=== PATIENT | female | born 1960 | race Two or more races ===

== ENCOUNTER 2024-06-20 11:42 | Inpatient (IN) | payer MEDICAID, OTHER ==
[~2024-06-20] VITALS: Ht 161.3 cm; Wt 106.6 kg
--- NOTE | 2024-06-20 11:46 | ED.PDOC ---
Carit. trauma (HPI) HPI Comments 63 y.o female presents to the ED via EMS for a cheif complaint of right sided pain s/p fall coming out the grocery store today. Patient reports feeling dizzy prior to falling but denied any LOC or head injuries. Patient presents with right sided lower back, abdomen, hip, leg and knee pain associated with rigth foot numbness. Patient denies any chest pain, SOB, fever, chills, lightheadedness, or recent illness. Time Seen by MD: 11:38 Reviewed notes: Nurses Notes, Auto Rental Supervisor Notes, Medications, Allergies Allergies: Coded Allergies: Acetaminophen (Verified Allergy, Severe, 06/20/24) Hydrocodone (Verified Allergy, Severe, 06/20/24) Information Source: Patient, Emergency Med Personnel Mode of Arrival: EMS Severity: Moderate Timing: Hours Duration: Since onset Prehospital treatment: 12 Lead EKG Location: Abdominal, Back, (R) Hip, (R) Knee Location of laceration: None Mechanism: Fall Associated signs and symtoms: Other Past Medical History PAST MEDICAL HISTORY: Gallstones Past Medical History (Other): kindey infections Surgical History: Appendectomy Surgical History (Other): gallstones LEAD INGOT MOLDER History: No Pertinent LEAD INGOT MOLDER History Family History Family History: Family hx of DM, Family hx of Cancer, Family hx of Kidney elena Social History Smoker: Non-Smoker Alcohol: Denies ETOH Use Drugs: Denies Drug Use Lives In: Home Constitutional: denies: chills, diaphoresis, fatigue, fever, malaise, sweats, weakness, others EENTM: denies: blurred vision, double vision, ear bleeding, ear discharge, ear drainage, ear pain, ear ringing, eye pain, eye redness, hearing loss, mouth pain, mouth swelling, nasal discharge, nose bleeding, nose congestion, nose pain, photophobia, tearing, throat pain, throat swelling, voice changes, others Respiratory: denies: cough, hemoptysis, orthopnea, SOB at rest, shortness of breath, SOB with excertion, stridor, wheezing, others Cardiovascular: denies: chest pain, dizzy spells, diaphoresis, Dyspnea on exertion, edema, irregular heart beat, left arm pain, lightheadedness, palpitations, PND, syncope, others Gastrointestinal: denies: abdomen distended, abdominal pain, blood streaked bowels, constipated, diarrhea, dysphagia, difficulty swallowing, hematemesis, melena, nausea, poor appetite, poor fluid intake, rectal bleeding, rectal pain, vomiting, others Genitourinary: denies: abnormal vagina bleeding, burning, dyspareunia, dysuria, flank pain, frequency, hematuria, incontinence, pain, , vagina dis charge, urgency, others Neurological: denies: dizziness, fainting, headache, left sided numbness, left sided weakness, numbness, paresthesia, pre-existing deficit, right sided numbness, right sided weakness, seizure, speech problems, tingling, tremors, weakness, others Musculoskeletal: reports: back pain, others (right sided body pain including back, abdomen, leg, knee and foot pain); denies: gout, joint pain, joint swelli ng, muscle pain, muscle stiffness, neck pain Integumetry: denies: bruises, change in color, change in hair/nails, dryness, laceration, lesions, lumps, rash, wounds, others Allergic/Immunocompromised: denies: Difficulty Healing, Frequent Infections, Hives, Itching, others Hematologic/Lymphatic: denies: anemia, blood clots, easy bleeding, easy bruising, swollen glands, others Endocrine: denies: excessive hunger, excessive sweating, excessive thirst, excessive urination, flushing, intolerance to cold, intolerance to heat, unexplained weight gain, unexplained weight loss, others Psychiatric: denies: anxiety, bipolar disorder, depression, hopeless, panic disorder, schizophrenia, sleepless, suicidal, others All Other Systems: Reviewed and Negative Physical Exam General Appearance: Moderate Distress HEENT: Normal ENT Inspection, Pharynx Normal, TMs Normal Neck: Full Range of Motion, Non-Tender, Normal, Normal Inspection Respiratory: Chest Non-Tender, Lungs Clear, No Accessory Muscle Use, No Respiratory Distress, Normal Breath Sounds Cardiovascular: No Edema, No JVD, No Murmur, No Gallop, Normal Peripheral Pulses, Regular Rate/Rhythm Breast Exam: Deferred Gastrointestinal: No Organomegaly, Non Tender, No Pulsatile Mass, Normal Bowel Sounds, Soft Genitalia: Deferred Pelvic: Deferred Rectal: Deferred Extremities: No calf tenderness, Normal capillary refill, No pedal edema Musculoskeletal : Location: Right Extremity Location: Hip Apperance: Normal Neurologic: Alert, clean up worker II-XII nml as Tested, Motor Weakness, Normal Affect, Normal Mood, No Sensory Deficits Cerebellar Function: Normal Reflexes: Normal Skin: Dry, Normal Color, Warm Lymphatic: No Adenopathy Was a procedure done? Was a procedure done?: No Differential Diagnosis Multiple Trauma: Fractures, Contusion, Other (sprain, strain, dislocation) X-Ray, Labs, Meds, VS Vital Signs Date Time Temp Pulse Resp B/P (MAP) Pulse Ox O2 Delivery O2 Flow Rate FiO2 06/20/24 12:06 98.1 86 12 142/75 (97) 93 98.1 06/20/24 12:06 86 12 93 Room Air* 0 21 06/20/24 11:44 98.4 95 15 125/86 (99) 98 98.4 Lab Test 06/20/24 13:40 06/20/24 12:15 06/20/24 11:55 Range/Units POC Glucose 421 *H 70-106 mg/dl Urine Color Light-yellow Yellow Urine Clarity Clear Clear Urine pH 5.0 5.0-9.0 Urine Specific [place] 1.042 H 1.001-1.035 Urine Protein Negative Negative Urine Ketones Negative Negative Urine Blood Negative Negative /uL Urine Nitrite Negative Negative Urine Bilirubin Negative Negative Urine Urobilinogen Normal Negative mg/dL Urine Leukocyte Esterase Negative Negative /uL Urine RBC <1 0 - 4 /hpf Urine Microscopic WBC < 1 0-5 /HPF Urine Squamous Epithelial Cells Few <5 /hpf Urine Bacteria Few H None Seen /hpf Urine Yeast (Budding) Occasional None Seen /hpf Urine Glucose 4+ H Normal mg/dL White Blood Count 7.2 4.4-10.8 10^3/uL Red Blood Count 4.80 4.0-5.20 10^6/uL Hemoglobin 14.2 12.2-16.2 g/dL Hematocrit 41.0 36.0-46.0 % Mean Corpuscular Volume 85.5 80.0-100.0 fL Mean Corpuscular Hemoglobin 29.5 28.0-32.0 pg Mean Corpuscular Hemoglobin Concent 34.5 32.0-36.0 g/dL Red Cell Distribution Width 14.6 H 11.8-14.3 % Platelet Count 125 L 140-450 10^3/uL Mean Platelet Volume 9.4 6.9-10.8 fL Neutrophils (%) (Auto) 64.3 37.0-80.0 % Lymphocytes (%) (Auto) 28.7 10.0-50.0 % Monocytes (%) (Auto) 4.9 0.0-12.0 % Eosinophils (%) (Auto) 1.9 0.0-7.0 % Basophils (%) (Auto) 0.2 0.0-2.0 % Neutrophils # (Auto) 4.7 1.6-8.6 10 ^3/uL Lymphocytes # (Auto) 2.1 0.4-5.4 10 ^3/uL Monocytes # (Auto) 0.4 0-1.3 10 ^3/uL Eosinophils # (Auto) 0.1 0-0.8 10 ^3/uL Basophils # (Auto) 0 0-0.2 10 ^3/uL Nucleated Red Blood Cells 0.1 % Sodium Level 135 L 136-145 mmol/L Potassium Level 3.5 3.5-5.1 mmol/L Chloride Level 100 98-107 mmol/L Carbon Dioxide Level 23 20-31 mmol/L Anion Gap 12 5-15 Blood Urea Nitrogen 15 9-23 mg/dL Creatinine 0.94 0.550-1.02 mg/dL Glomerular Filtration Rate Calc 69 >90 mL/min BUN/Creatinine Ratio 16.0 10.0-20.0 Serum Glucose 570 *H 74-106 mg/dL Calcium Level 9.5 8.7-10.4 mg/dL Current Medications Medications (Trade) Dose Ordered Sig/Darius Route Start Time Stop Time Status Last Admin Sodium Chloride 1,000 ml @ 1,000 mls/hr Q1H ONCE IV 06/20/24 13:30 06/20/24 14:29 06/20/24 13:38 Insulin Human Regular (InsuLIN R) 5 units ONCE ONCE IV 06/20/24 13:30 06/20/24 13:31 DC 06/20/24 13:46 Patient's CBC is within normal limits The chemistry panel shows a glucose of 570 There is a concern about the hyperglycemia so the patient was given normal saline at 1 L bolus. The patient was given insulin 5 units IV push. The urine test is negative at this time The patient was being admitted to the hospitalist with a diagnosis of uncontrolled diabetes as well as fall. We did an x-ray of the right hip which shows: No sign of any abnormalities The right knee x-ray is negative The chest x-ray is negative The patient was being admitted at this time Images Reviewed?: Images reviewed and evaluated by me Time of 1ST Reevaluation: 11:46 Reevaluation 1ST: Unchanged Patient Education/Counseling: Diagnosis, Treatment, Prognosis Family Education/Counseling: No Family Present Departure 1 Departure Time of Disposition: 14:03 Impression: Primary Impression: Uncontrolled diabetes mellitus Qualified Codes: E13.65 - Other specified diabetes mellitus with hyperglycemia Additional Impressions: History of fall Contusion of right hip Qualified Codes: S70.01XA - Contusion of right hip, initial encounter Disposition: 09 ADMITTED INPATIENT Admit to: [facility] Condition: Fair Critical Care Note Critical Care Time?: No Stability Stability form required: Yes Unstable for transfer: Telemetry monitoring (Telemetry monitoring required), ED Physician Assesment (Clinical assesment) I personally scribed for SHERLY LARSEN MD ([email or web address]) on 06/20/24 at 11:46. Electronically submitted by Miguelina Gray ([facility]). SHERLY LARSEN MD Jun 20, 2024 11:46
[2024-06-20 12:06] VITALS: PULSE 86; RESP 12; O2SAT 93
[2024-06-20 12:09] LABS: Basophils # (auto) 0 10 ^3/uL (0-0.2); Basophils % (auto) 0.2 % (0.0-2.0); Eosinophils # (auto) 0.1 10 ^3/uL (0-0.8); Eosinophils % (auto) 1.9 % (0.0-7.0); Hemoglobin 14.2 g/dL (12.2-16.2); Lymphocytes # (auto) 2.1 10 ^3/uL (0.4-5.4); Lymphocytes % (auto) 28.7 % (10.0-50.0); Mean Corpuscular Hemoglobin 29.5 pg (28.0-32.0); Mean Corpuscular Hgb Conc. 34.5 g/dL (32.0-36.0); Mean Corpuscular Volume 85.5 fL (80.0-100.0); Monocytes # (auto) 0.4 10 ^3/uL (0-1.3); Monocytes % (auto) 4.9 % (0.0-12.0); Neutrophils # (auto) 4.7 10 ^3/uL (1.6-8.6); Neutrophils % (auto) 64.3 % (37.0-80.0); Nucleated Red Blood Cells % 0.1 %; Platelet Count (auto) 125 10^3/uL (140-450); Red Cell Distribution Width 14.6 % (11.8-14.3); White Blood Cell 7.2 10^3/uL (4.4-10.8)
[2024-06-20 12:23] LABS: Chloride 100 mmol/L (98-107); Potassium 3.5 mmol/L (3.5-5.1)
[2024-06-20 12:24] LABS: Anion Gap 12 (5-15); Calcium 9.5 mg/dL (8.7-10.4); Carbon Dioxide 23 mmol/L (20-31)
[2024-06-20 12:27] LABS: Sodium 135 mmol/L (136-145)
[2024-06-20 12:29] LABS: Blood Urea Nitrogen 15 mg/dL (9-23)
[2024-06-20 12:36] LABS: Glucose 570 mg/dL (74-106)
[2024-06-20 12:47] LABS: Urine Bacteria FEW /hpf (None Seen); Urine Blood Negative /uL (Negative); Urine Budding Yeast OCCASIONAL /hpf (None Seen); Urine Clarity Clear (Clear); Urine Color Light-Yellow (Yellow); Urine Protein, UAD Negative (Negative); Urine Specific Gravity 1.042 (1.001-1.035); Urine Squamous Epithelial Cell FEW /hpf (<5); Urine Urobilinogen Normal (Negative); Urine WBC < 1 /HPF (0-5)
--- NOTE | 2024-06-20 13:26 | DVH ---
CLINICAL INDICATION: fall, trauma, pain TECHNIQUE: XY R HIP COMPLETE XRAY Comparison: None FINDINGS/IMPRESSION: : There is no evidence of acute fracture or dislocation. Soft tissues are unremarkable.
--- NOTE | 2024-06-20 13:27 | DVH ---
CHEST RADIOGRAPH Indication: fall, trauma, pain Technique: Single frontal view of the chest was obtained COMPARISON: None FINDINGS: Lines and Tubes: None Lungs: Clear Pleura: No effusion. No pneumothorax. Cardiomediastinal contours: Unremarkable Bones: Unremarkable IMPRESSION: No acute disease.
--- NOTE | 2024-06-20 13:30 | DVH ---
X-ray right knee Technique: AP lateral and oblique views and cross-table views REASON FOR EXAM: fall FINDINGS: No fractures or dislocations. No erosions or periosteal reaction. Patellofemoral joint spac e narrowing. No joint effusion IMPRESSION: 1. No acute bony pathology. Mild degenerative changes
[2024-06-20] MEDS: SODIUM CHLORIDE 0.9% 1,000 ML IV ONE (13:38)
[2024-06-20] MEDS: InsuLIN REG 1unit/0.01ml Soln (100units/ml) IV ONE (13:46)
[2024-06-20] MEDS: MORPHINE SULFATE 4 MG/ML SYR/VIAL IV ONE (16:26)
[2024-06-20] MEDS ORDERED: DEXTROSE (50%) 50ML SYRG IV PRN (16:45)
[2024-06-20] MEDS ORDERED: ONDANSETRON HCL 4 MG/2 ML VIAL IV PRN (16:45)
[2024-06-20] MEDS ORDERED: ACETAMINOPHEN 325 MG TAB PO PRN (16:45)
[2024-06-20] MEDS ORDERED: NITROGLYCERIN 0.4 MG SL TAB SL PRN (16:45)
[2024-06-20] MEDS ORDERED: IBUPROFEN 600 MG TAB PO PRN (16:45)
[2024-06-20] MEDS: SODIUM CHLORIDE 0.9% 1,000 ML IV SCH (16:54)
[2024-06-20 16:58] LABS: Triglycerides 113 mg/dL (< 150)
[2024-06-20 16:59] LABS: LDL Cholesterol 60 mg/dL (< 100)
[2024-06-20 17:00] LABS: Cholesterol 140 mg/dL (< 200)
[2024-06-20 17:03] LABS: HDL Cholesterol 66 mg/dL (40-59)
--- NOTE | 2024-06-20 17:07 | DVH ---
EXAM: CT HEAD WITHOUT CONTRAST INDICATION: fall TECHNIQUE: CT of the head without intravenous contrast. Radiation Dose : 1. Head: CT Dose: CTDI volume is 58.77 mGy. Dose-length product is 1040.57 mGy*cm The dose indicators for CT are the volume Computed Tomography (CT) Dose Index (CTDIvol) and the Dose Length Product (DLP), and are measured in units of mGy and mGy-cm, respectively. These indicators are not patient dose, but values generated from the CT scanner acquisition factors. The report includes radiation exposure data for exposures received during this examination. COMPARISON: None FINDINGS: There is no evidence of acute intracranial hemorrhage, extra-axial collection, mass effect, midline s hift, herniation or hydrocephalus. The ventricles, sulci and cisterns are age appropriate. The carlson-white differentiation is intact. Patchy periventricular and subcortical white matter hypoattenuation is nonspecific but may be related to small vessel ischemic disease. The visualized paranasal sinuses and mastoid air cells are clear. The surrounding soft tissues and osseous structures are unremarkable. IMPRESSION: 1. No acute intracranial abnormality. Radiation optimization: All CT scans at this facility use at least one of these dose optimization latosha hniques: automated exposure control mA and/or kV adjustment per patient size (includes targeted exam s where dose is matched to clinical indication) or iterative reconstruction.
[2024-06-20] MEDS: ACCU-CHEK COMFORT CURVE STRIP VI SCH (17:23)
[2024-06-20] MEDS: InsuLIN REG 1unit/0.01ml Soln (100units/ml) SC SCH (17:27)
[2024-06-20 19:39] VITALS: PULSE 69; RESP 97; O2SAT 97
[2024-06-20] MEDS: MORPHINE SULFATE INJ 2 MG/ml SYRG IV PRN (22:45)
[2024-06-20 23:00] VITALS: BP 134/80; PULSE 99; RESP 17; TEMP 97.8; O2SAT 96
[2024-06-20 23:08] VITALS: BP 134/80; PULSE 72; RESP 18; TEMP 97.8; O2SAT 96
[2024-06-20] MEDS ORDERED: CLON-857 PO (23:19)
[2024-06-20] MEDS ORDERED: HYDR12.59 PO (23:19)
[2024-06-20] MEDS ORDERED: OMEP1CAP70 PO (23:19)
[2024-06-20] MEDS ORDERED: NAP500T PO (23:19)
[2024-06-20] MEDS ORDERED: SERT-289 PO (23:19)
[2024-06-21] VITALS (8 sets, daily range): BP systolic 111–182; BP diastolic 69–86; PULSE 68–83; RESP 15–20; TEMP 97.5–98.3; O2SAT 92–98
[2024-06-21] MEDS ORDERED: DEXTROSE (50%) 50ML SYRG IV PRN (00:45)
--- NOTE | 2024-06-21 01:59 | DVHHP2 ---
DEIRDRE GODWIN MANDREL PRESS HAND 06/21/24 0159: History of Present Illness Reason for Visit: Dizziness and fall History of Present Illness 63-year-old female with past medical history of DM, hypertension presents with complaints of a fall after getting dizzy. Patient states she was walking in the parking lot of a grocery store when she suddenly felt dizzy and fell to the ground. Endorses pain to the right hip lower back and numbness to the foot. At this time there are no complaints of fevers, chills, LOC, head trauma, shortness of breath, chest pain, nausea, vomiting. Cardiovascular: HTN Endocrine: Diabetes Smoke: No ALCOHOL: none Drugs: None Lives: with Family Review of Systems Constitutional: Yes: Weakness; No: Fever, Chills, Sweats, Malaise, Other Eyes: No: Pain, Vision change, Conjunctivae inflammation, Eyelid inflammation, Other, Redness ENT: No: Ear pain, Ear discharge, Nose pain, Nose discharge, Nose congestion, Mouth pain, Mouth swelling, Throat pain, Throat swelling, Other Respiratory: No: Cough, Dry, Shortness of breath, SOB with excertion, Wheezing, Hemoptysis, Pleuritic Pain, Sputum, Wheezing, Other Cardiovascular: Lt Headedness; No: Chest Pain, Palpitations, Orthopnea, Paroxy smal Noc. Dyspnea, Edema, Other Gastrointestinal: No: Nausea, Vomiting, Abdominal Pain, Diarrhea, Constipation, Melena, Hematochezia, Other Genitourinary: No Dysuria, No Frequency, No Incontinence, No Hematuria, No Retention, No Other Musculoskeletal: back pain, leg pain, foot pain; No: other, neck pain, shoulder pain, arm pain, hand pain Skin: No: Rash, Lesions, Jaundice, Bruising, Other Neurological: No: Weakness, Numbness, Incoordination, Change in speech, Confusion, Seizures, Other Allergies: Coded Allergies: NO KNOWN ALLERGIES (Unverified , 06/20/24) Medications Current Medications Medications Dose Ordered Sig/Darius Route Start Time Stop Time Status Last Admin Dose Admin Nitroglycerin 0.4 mg Q5MINP PRN SL 06/20/24 16:45 Morphine Sulfate 2 mg Q30M PRN IV 06/20/24 16:45 06/20/24 22:45 2 MG Sodium Chloride 1,000 ml @ 125 mls/hr Q8H IV 06/20/24 16:45 06/20/24 23:56 125 MLS/HR Ondansetron HCl 4 mg Q4HPRN PRN IV 06/20/24 16:45 Ibuprofen 600 mg Q6HP PRN PO 06/20/24 16:45 Acetaminophen 650 mg Q4HP PRN PO 06/20/24 16:45 Hold Famotidine 20 mg DAILY PO 06/21/24 10:00 Insulin Glargine 15 units DAILY@1000 SC 06/21/24 10:00 Insulin Human Lispro 4 units AC SC 06/21/24 07:00 Diagnostic Test (Pha) 1 strip ACHS 06/21/24 07:00 Dextrose 50 ml UD PRN IV 06/21/24 00:45 Insulin Human Lispro ACHS SC 06/21/24 07:00 Exam Vital Signs Vital Signs Date Time Temp Pulse Resp B/P (MAP) Pulse Ox O2 Delivery O2 Flow Rate FiO2 06/21/24 01:00 97.8 75 17 153/80 (104) 96 97.8 06/20/24 23:08 Room Air* 0 21 General Appearance: Alert, Oriented X3, Cooperative, No acute distress HEENT: Atraumatic, PERRLA, EOMI Respiratory: Clear to auscultation, Normal air movement Cardiovascular: Regular rate, Normal S1, Normal S2 Abdominal: Normal bowel sounds, Soft, No tenderness Extremities: No clubbing, No cyanosis Skin: No breakdown Neuro: Normal speech, Strength at 5/5 X4 ext Psych/Mental Status: Mental status NL, Mood NL Labs/Xrays Labs Test 06/20/24 21:32 06/20/24 19:59 06/20/24 16:58 06/20/24 12:15 Range/Units POC Glucose 208 H 70-106 mg/dl Troponin I High Sensitivity 3 L </=34 ng/L Free Thyroxine (T4) Calculated 1.29 0.89-1.76 ng/dL Urine Color Light-yellow Yellow Urine Clarity Clear Clear Urine pH 5.0 5.0-9.0 Urine Specific [place] 1.042 H 1.001-1.035 Urine Protein Negative Negative Urine Ketones Negative Negative Urine Blood Negative Negative /uL Urine Nitrite Negative Negative Urine Bilirubin Negative Negative Urine Urobilinogen Normal Negative mg/dL Urine Leukocyte Esterase Negative Negative /uL Urine RBC <1 0 - 4 /hpf Urine Microscopic WBC < 1 0-5 /HPF Urine Squamous Epithelial Cells Few <5 /hpf Urine Bacteria Few H None Seen /hpf Urine Yeast (Budding) Occasional None Seen /hpf Urine Glucose 4+ H Normal mg/dL Test 06/20/24 11:55 Range/Units White Blood Count 7.2 4.4-10.8 10^3/uL Red Blood Count 4.80 4.0-5.20 10^6/uL Hemoglobin 14.2 12.2-16.2 g/dL Hematocrit 41.0 36.0-46.0 % Mean Corpuscular Volume 85.5 80.0-100.0 fL Mean Corpuscular Hemoglobin 29.5 28.0-32.0 pg Mean Corpuscular Hemoglobin Concent 34.5 32.0-36.0 g/dL Red Cell Distribution Width 14.6 H 11.8-14.3 % Platelet Count 125 L 140-450 10^3/uL Mean Platelet Volume 9.4 6.9-10.8 fL Neutrophils (%) (Auto) 64.3 37.0-80.0 % Lymphocytes (%) (Auto) 28.7 10.0-50.0 % Monocytes (%) (Auto) 4.9 0.0-12.0 % Eosinophils (%) (Auto) 1.9 0.0-7.0 % Basophils (%) (Auto) 0.2 0.0-2.0 % Neutrophils # (Auto) 4.7 1.6-8.6 10 ^3/uL Lymphocytes # (Auto) 2.1 0.4-5.4 10 ^3/uL Monocytes # (Auto) 0.4 0-1.3 10 ^3/uL Eosinophils # (Auto) 0.1 0-0.8 10 ^3/uL Basophils # (Auto) 0 0-0.2 10 ^3/uL Nucleated Red Blood Cells 0.1 % Sodium Level 135 L 136-145 mmol/L Potassium Level 3.5 3.5-5.1 mmol/L Chloride Level 100 98-107 mmol/L Carbon Dioxide Level 23 20-31 mmol/L Anion Gap 12 5-15 Blood Urea Nitrogen 15 9-23 mg/dL Creatinine 0.94 0.550-1.02 mg/dL Glomerular Filtration Rate Calc 69 >90 mL/min BUN/Creatinine Ratio 16.0 10.0-20.0 Serum Glucose 570 *H 74-106 mg/dL Hemoglobin A1c 13.1 H <5.7 % A1C Calcium Level 9.5 8.7-10.4 mg/dL Triglycerides Level 113 < 150 mg/dL Cholesterol Level 140 < 200 mg/dL LDL Cholesterol 60 < 100 mg/dL HDL Cholesterol 66 H 40-59 mg/dL Thyroid Stimulating Hormone (TSH) 1.28 0.55-4.78 uIU/mL Assessment/Plan Assessment/Plan Uncontrolled DM with hyperglycemia Dizziness Fall Contusion right hip Plan Admit patient to telemetry Assembly Repairer consult. ACHS blood glucose checks with regular insulin sliding scale coverage Echocardiogram. Orthostatic vital signs Orthopedic consult IVF GI ppx pepcid / DVT ppx SCD Plan discussed with: Patient Date of Service: Jun 21, 2024 Billing Provider: JASVIR BLUE MD Common Visit Codes: NOT BILLABLE JASVIR BLUE MD 06/21/24 1331: Review of Systems Allergies: Coded Allergies: NO KNOWN ALLERGIES (Unverified , 06/20/24) Assessment/Plan Assessment/Plan Patient's chart is reviewed and discussed with the nurse practitioner. Patient is seen and evaluated by me this afternoon along with the nurse at bedside. I agree with the nurse practitioner's evaluation, documentation, assessment and care plan as outlined. DEIRDRE GODWIN NP Jun 21, 2024 01:59 JASVIR BLUE MD Jun 21, 2024 13:31
[2024-06-21] MEDS: ACCU-CHEK COMFORT CURVE STRIP VI SCH (06:09)
[2024-06-21] MEDS: INSULIN LISPRO (HUMAN) 100 UNITS/ML ML SC SCH ×2 (06:21→06:22)
[2024-06-21] MEDS ORDERED: INSULIN LISPRO (HUMAN) 100 UNITS/ML ML SC SCH ×2 (07:00→22:00)
[2024-06-21 08:01] LABS: Chloride 106 mmol/L (98-107); Potassium 3.8 mmol/L (3.5-5.1); Sodium 142 mmol/L (136-145)
[2024-06-21 08:02] LABS: Anion Gap 9 (5-15); Carbon Dioxide 27 mmol/L (20-31)
[2024-06-21 08:08] LABS: BUN/Creatinine Ratio 13.6 (10.0-20.0); Blood Urea Nitrogen 11 mg/dL (9-23)
[2024-06-21 08:10] LABS: Glucose 298 mg/dL (74-106)
[2024-06-21] MEDS: INSULIN LANTUS (GLARGINE) 1 /0.01ml (100units/ml) SC SCH (10:00)
[2024-06-21] MEDS: FAMOTIDINE 20 MG TAB PO SCH (10:00)
[2024-06-21] MEDS ORDERED: HYDROcodone-ACET 5/325MG TAB PO PRN (12:30)
[2024-06-21] MEDS: SODIUM CHLORIDE 0.9% 1,000 ML IV SCH (13:30)
[2024-06-21] MEDS: INSULIN LISPRO (HUMAN) 100 UNITS/ML ML SC ONE (15:30)
--- NOTE | 2024-06-21 16:53 | DVHINCON2 ---
Date of service: Jun 21, 2024 Reason for Consultation hyperglycemia History of Present Illness 63yo F w/ hx of HTN who presented to the hospital on 06/20 with R sided pain 2/2 GLF. Patient had been ambulating out of grocery store when she began experiencing acute onset dizziness resulting in GLF. Upon presentation patient was hemodynamically stable satting well on room air, afebrile. Endorsed pain in R lower back, abdomen, knee. Notes chronic bilateral LE numbness/tingling. Labwork upon presentation showed A1c 13.1%. Normal CBC. BG 570. Na 135. Patient was given regular insulin. She denies any past history of dysglycemia. Does not take any antihyperglycemic pharmacotherapy at home. Past Medical History Problems Medical Problems: (1) Contusion of right hip Status: Acute (2) History of fall Status: Acute (3) Uncontrolled diabetes mellitus Status: Acute Past Surgical History Past Surgical History Medical Problems: (1) Contusion of right hip Status: Acute (2) History of fall Status: Acute (3) Uncontrolled diabetes mellitus Status: Acute Family History: Diabetes mellitus G8 MOTHER FH: chronic kidney disease Sepsis Allergies: Coded Allergies: NO KNOWN ALLERGIES (Unverified , 06/20/24) Home Meds Reported Medications Naproxen (NAPROSYN TABLET) 500 Mg Tb, 1 TAB PO BID 06/20/24 Sertraline HCl (Sertraline HCl) 50 Mg Tab, 1 TAB PO DAILY 06/20/24 Omeprazole (Omeprazole Dr) 20 Mg Cap, 1 CAP PO DAILY 06/20/24 Clonazepam (Clonazepam) 2 Mg Tab, PO 06/20/24 Hydrochlorothiazide (Hydrochlorothiazide) 12.5 Mg Cap, PO 06/20/24 Current Medications Current Medications Medications (Trade) Dose Ordered Sig/Darius Route PRN Reason Start Time Stop Time Status Last Admin Famotidine (Pepcid Tablet) 20 mg DAILY PO 06/21/24 10:00 06/21/24 10:00 Diagnostic Test (Pha) (Accu-Chek Comfort Curve T) 1 strip ACHS 06/20/24 17:00 06/21/24 00:27 DC 06/20/24 21:34 Insulin Human Regular (InsuLIN R) ACHS SC 06/20/24 17:00 06/21/24 00:27 DC 06/20/24 21:40 Insulin Glargine (Lantus) 15 units DAILY@1000 SC 06/21/24 10:00 06/21/24 10:00 Insulin Human Lispro (HumaLOG) 4 units AC SC 06/21/24 07:00 06/21/24 11:37 Diagnostic Test (Pha) (Accu-Chek Comfort Curve T) 1 strip ACHS 06/21/24 07:00 06/21/24 11:35 Insulin Human Lispro (HumaLOG) HS SC 06/21/24 22:00 06/21/24 00:53 DC Insulin Human Lispro (HumaLOG) AC SC 06/21/24 07:00 06/21/24 00:55 DC Dextrose 50 ml UD PRN IV Blood Sugar LESS THAN 60 06/21/24 00:45 Insulin Human Lispro (HumaLOG) ACHS SC 06/21/24 07:00 06/21/24 11:38 Acetaminophen/ Hydrocodone Bitart ([place] 5/325MG Tab) 1 tab Q6HPRN PRN PO MODERATE PAIN (4-6 PAIN SCALE) 06/21/24 12:30 Sodium Chloride 1,000 ml @ 75 mls/hr [id number] IV 06/21/24 13:30 Vital Signs Vital Signs Date Time Temp Pulse Resp B/P (MAP) Pulse Ox O2 Delivery O2 Flow Rate FiO2 06/21/24 13:00 98.3 68 20 163/82 (109) 98 98.3 06/21/24 08:13 Room Air* 0 21 Physical Exam Gen - no acute distress HEENT - no thyromegaly CV - RRR, no m/r/g Resp - CTAB Ext - no edema Labs/Diagnostic Data Labs Test 06/21/24 15:08 06/21/24 07:25 06/20/24 19:59 06/20/24 16:58 Range/Units POC Glucose 293 H 70-106 mg/dl Sodium Level 142 # 136-145 mmol/L Potassium Level 3.8 3.5-5.1 mmol/L Chloride Level 106 98-107 mmol/L Carbon Dioxide Level 27 20-31 mmol/L Anion Gap 9 5-15 Blood Urea Nitrogen 11 9-23 mg/dL Creatinine 0.81 0.550-1.02 mg/dL Glomerular Filtration Rate Calc 82 >90 mL/min BUN/Creatinine Ratio 13.6 10.0-20.0 Serum Glucose 298 H 74-106 mg/dL Calcium Level 9.0 8.7-10.4 mg/dL Troponin I High Sensitivity 3 L </=34 ng/L Free Thyroxine (T4) Calculated 1.29 0.89-1.76 ng/dL Test 06/20/24 12:15 06/20/24 11:55 Range/Units Urine Color Light-yellow Yellow Urine Clarity Clear Clear Urine pH 5.0 5.0-9.0 Urine Specific [place] 1.042 H 1.001-1.035 Urine Protein Negative Negative Urine Ketones Negative Negative Urine Blood Negative Negative /uL Urine Nitrite Negative Negative Urine Bilirubin Negative Negative Urine Urobilinogen Normal Negative mg/dL Urine Leukocyte Esterase Negative Negative /uL Urine RBC <1 0 - 4 /hpf Urine Microscopic WBC < 1 0-5 /HPF Urine Squamous Epithelial Cells Few <5 /hpf Urine Bacteria Few H None Seen /hpf Urine Yeast (Budding) Occasional None Seen /hpf Urine Glucose 4+ H Normal mg/dL White Blood Count 7.2 4.4-10.8 10^3/uL Red Blood Count 4.80 4.0-5.20 10^6/uL Hemoglobin 14.2 12.2-16.2 g/dL Hematocrit 41.0 36.0-46.0 % Mean Corpuscular Volume 85.5 80.0-100.0 fL Mean Corpuscular Hemoglobin 29.5 28.0-32.0 pg Mean Corpuscular Hemoglobin Concent 34.5 32.0-36.0 g/dL Red Cell Distribution Width 14.6 H 11.8-14.3 % Platelet Count 125 L 140-450 10^3/uL Mean Platelet Volume 9.4 6.9-10.8 fL Neutrophils (%) (Auto) 64.3 37.0-80.0 % Lymphocytes (%) (Auto) 28.7 10.0-50.0 % Monocytes (%) (Auto) 4.9 0.0-12.0 % Eosinophils (%) (Auto) 1.9 0.0-7.0 % Basophils (%) (Auto) 0.2 0.0-2.0 % Neutrophils # (Auto) 4.7 1.6-8.6 10 ^3/uL Lymphocytes # (Auto) 2.1 0.4-5.4 10 ^3/uL Monocytes # (Auto) 0.4 0-1.3 10 ^3/uL Eosinophils # (Auto) 0.1 0-0.8 10 ^3/uL Basophils # (Auto) 0 0-0.2 10 ^3/uL Nucleated Red Blood Cells 0.1 % Hemoglobin A1c 13.1 H <5.7 % A1C Triglycerides Level 113 < 150 mg/dL Cholesterol Level 140 < 200 mg/dL LDL Cholesterol 60 < 100 mg/dL HDL Cholesterol 66 H 40-59 mg/dL Thyroid Stimulating Hormone (TSH) 1.28 0.55-4.78 uIU/mL Assessment # Uncontrolled type 2 DM with hyperglycemia # HTN # HLD - Start glargine 15 units daily - Start lispro 4 units tidac - Start moderate intensity correctional lispro tidac, qhs - POC BG monitoring tidac, qhs - Hypoglycemia protocol - Nursing to educate patient on BG monitoring and insulin administration - Patient to establish care with endocrinology as outpatient. Phone # provided. Will need referral from PCP. Plan discussed with: Patient CHICO SUAZO MD Jun 21, 2024 16:53
[2024-06-22 01:00] VITALS: BP 154/88; PULSE 90; RESP 19; TEMP 97.9; O2SAT 97
[2024-06-22 05:00] VITALS: BP 139/73; PULSE 71; RESP 17; TEMP 98; O2SAT 95
[2024-06-22 08:12] VITALS: PULSE 85
[2024-06-22 09:00] VITALS: BP 111/81; PULSE 72; RESP 20; TEMP 98.4; O2SAT 97
--- NOTE | 2024-06-22 11:52 | DVHPN2 ---
Progress Note - Dictate Date Seen: Jun 22, 2024 Medical Necessity Reason Pt with a Central, PICC or Fol: No Subjective NAEO. Patient with some fasting and significant postprandial hyperglycemia. Tolerating PO intake well. Minimal pain. vital signs Vital Sign Date Time Temp Pulse Resp B/P (MAP) Pulse Ox O2 Delivery O2 Flow Rate FiO2 06/22/24 09:00 98.4 72 20 111/81 (91) 97 98.4 06/22/24 08:02 Room Air* 0 21 Total Intake and Output 06/21/24 06/21/24 06/22/24 15:00 23:00 07:00 Intake Total 920 ml 650 ml Balance 920 ml 650 ml medications Current Medications Medications Dose Ordered Sig/Darius Route Start Time Stop Time Status Last Admin Dose Admin Nitroglycerin 0.4 mg Q5MINP PRN SL 06/20/24 16:45 Morphine Sulfate 2 mg Q30M PRN IV 06/20/24 16:45 06/20/24 22:45 2 MG Ondansetron HCl 4 mg Q4HPRN PRN IV 06/20/24 16:45 Ibuprofen 600 mg Q6HP PRN PO 06/20/24 16:45 Acetaminophen 650 mg Q4HP PRN PO 06/20/24 16:45 Hold Famotidine 20 mg DAILY PO 06/21/24 10:00 06/22/24 09:47 20 MG Insulin Glargine 15 units DAILY@1000 SC 06/21/24 10:00 06/22/24 09:40 15 UNITS Insulin Human Lispro 4 units AC SC 06/21/24 07:00 06/22/24 06:16 4 UNITS Diagnostic Test (Pha) 1 strip ACHS 06/21/24 07:00 06/22/24 06:17 1 STRIP Dextrose 50 ml UD PRN IV 06/21/24 00:45 Insulin Human Lispro ACHS SC 06/21/24 07:00 06/22/24 06:17 4 UNITS Acetaminophen/ Hydrocodone Bitart 1 tab Q6HPRN PRN PO 06/21/24 12:30 Sodium Chloride 1,000 ml @ 75 mls/hr [id number] IV 06/21/24 13:30 06/21/24 13:30 75 MLS/HR objective Gen - no acute distress HEENT - no thyromegaly CV - RRR, no m/r/g Resp - CTAB Ext - no edema laboratory and microbiology Laboratory Tests 06/21/24 07:25 06/20/24 11:55 Test 06/21/24 07:25 Range/Units Serum Glucose 298 H 74-106 mg/dL Assessment/Plan # Uncontrolled type 2 DM with hyperglycemia # HTN # HLD - Increase glargine 20 units daily - Increase lispro 8 units tidac - Continue moderate intensity correctional lispro tidac, qhs - POC BG monitoring tidac, qhs - Hypoglycemia protocol - Nursing to educate patient on BG monitoring and insulin administration Discharge recommendations: - Glargine 20 units once daily - Lispro 8 units prior to each meal - Rx glucometer, test strips, lancets. Monitor BG prior to each meal and keep log. - Patient to establish care with endocrinology as outpatient. Phone # provided. Will need referral from PCP. Plan discussed with: Patient CHICO SUAZO MD Jun 22, 2024 11:52
[2024-06-22] MEDS ORDERED: BLOO-200 XX (12:28)
[2024-06-22] MEDS ORDERED: INSU100I4 SC (12:28)
[2024-06-22] MEDS ORDERED: INSU1MIS44 XX (12:28)
[2024-06-22] MEDS ORDERED: LANC-347 XX (12:28)
[2024-06-22] MEDS ORDERED: INSU100I69 SC (12:28)
--- NOTE | 2024-06-22 12:40 | DVHDS2 ---
Discharge Summary Date of Admission Jun 20, 2024 at 16:33 Date of Discharge: Jun 22, 2024 Labs/Diagnostic Data: Laboratory Results Test 06/22/24 12:01 06/21/24 07:25 06/20/24 19:59 06/20/24 16:58 POC Glucose 292 mg/dl (70-106) Sodium Level 142 mmol/L (136-145) Potassium Level 3.8 mmol/L (3.5-5.1) Chloride Level 106 mmol/L (98-107) Carbon Dioxide Level 27 mmol/L (20-31) Anion Gap 9 (5-15) Blood Urea Nitrogen 11 mg/dL (9-23) Creatinine 0.81 mg/dL (0.550-1.02) Glomerular Filtration Rate Calc 82 mL/min (>90) BUN/Creatinine Ratio 13.6 (10.0-20.0) Serum Glucose 298 mg/dL (74-106) Calcium Level 9.0 mg/dL (8.7-10.4) Troponin I High Sensitivity 3 ng/L (</=34) Free Thyroxine (T4) Calculated 1.29 ng/dL (0.89-1.76) Test 06/20/24 12:15 06/20/24 11:55 Urine Color Light-yellow (Yellow) Urine Clarity Clear (Clear) Urine pH 5.0 (5.0-9.0) Urine Specific [place] 1.042 (1.001-1.035) Urine Protein Negative (Negative) Urine Ketones Negative (Negative) Urine Blood Negative /uL (Negative) Urine Nitrite Negative (Negative) Urine Bilirubin Negative (Negative) Urine Urobilinogen Normal mg/dL (Negative) Urine Leukocyte Esterase Negative /uL (Negative) Urine RBC <1 /hpf (0 - 4) Urine Microscopic WBC < 1 /HPF (0-5) Urine Squamous Epithelial Cells Few /hpf (<5) Urine Bacteria Few /hpf (None Seen) Urine Yeast (Budding) Occasional /hpf (None Urine Glucose 4+ mg/dL (Normal) White Blood Count 7.2 10^3/uL (4.4-10.8) Red Blood Count 4.80 10^6/uL (4.0-5.20) Hemoglobin 14.2 g/dL (12.2-16.2) Hematocrit 41.0 % (36.0-46.0) Mean Corpuscular Volume 85.5 fL (80.0-100.0) Mean Corpuscular Hemoglobin 29.5 pg (28.0-32.0) Mean Corpuscular Hemoglobin Concent 34.5 g/dL (32.0-36.0) Red Cell Distribution Width 14.6 % (11.8-14.3) Platelet Count 125 10^3/uL (140-450) Mean Platelet Volume 9.4 fL (6.9-10.8) Neutrophils (%) (Auto) 64.3 % (37.0-80.0) Lymphocytes (%) (Auto) 28.7 % (10.0-50.0) Monocytes (%) (Auto) 4.9 % (0.0-12.0) Eosinophils (%) (Auto) 1.9 % (0.0-7.0) Basophils (%) (Auto) 0.2 % (0.0-2.0) Neutrophils # (Auto) 4.7 10 ^3/uL (1.6-8.6) Lymphocytes # (Auto) 2.1 10 ^3/uL (0.4-5.4) Monocytes # (Auto) 0.4 10 ^3/uL (0-1.3) Eosinophils # (Auto) 0.1 10 ^3/uL (0-0.8) Basophils # (Auto) 0 10 ^3/uL (0-0.2) Nucleated Red Blood Cells 0.1 % Hemoglobin A1c 13.1 % A1C (<5.7) Triglycerides Level 113 mg/dL (< 150) Cholesterol Level 140 mg/dL (< 200) LDL Cholesterol 60 mg/dL (< 100) HDL Cholesterol 66 mg/dL (40-59) Thyroid Stimulating Hormone (TSH) 1.28 uIU/mL (0.55-4.78) Other Laboratory Tests 06/21/24 07:25 06/20/24 11:55 Brief Hx & Hospital Course: 63-year-old female with past medical history of DM, hypertension presents with complaints of a fall after getting dizzy. Patient states she was walking in the parking lot of a grocery store when she suddenly felt dizzy and fell to the ground. Endorses pain to the right hip lower back and numbness to the foot. At this time there are no complaints of fevers, chills, LOC, head trauma, shortness of breath, chest pain, nausea, vomiting. She is admitted and evaluated by supervisor furnace process for new onset diabetes and started on insulin. Patient underwent counseling education regarding her diabetes, calorie count, dietary changes and compliance with the insulin regimen as she is prescribed. Her blood sugars are relatively stable in the 200 range. Her A1c is significantly elevated around 13. Patient is advised to have close follow up with the PCP and referral to supervisor furnace process to further adjust her insulin and control her blood sugars. She was advised to keep her blood sugars between 70 and 150. Meantime due to her falls she had x-rays of her leg and hip which is normal. Patient underwent physical therapy evaluation and she was walking on her own without any issues. Patient is not requiring any pain medications. Overall otherwise she was clinically stable. Given her blood sugars have improved and patient is ambulating without issues it is felt she could be safely discharged home with a close outpatient follow up with the PCP and supervisor furnace process as mentioned. I have talked with the patient along with the nurse at bedside on multiple occasions regarding her hospital diagnosis, treatment she received, discharge medications, discharge instructions and follow-up plan of care. She has verbalized understanding of these and agreed with the care plan as outlined Consults/Reason for consult Assessment/Plan # Uncontrolled type 2 DM with hyperglycemia # HTN # HLD - Increase glargine 20 units daily - Increase lispro 8 units tidac - Continue moderate intensity correctional lispro tidac, qhs - POC BG monitoring tidac, qhs - Hypoglycemia protocol - Nursing to educate patient on BG monitoring and insulin administration Discharge recommendations: - Glargine 20 units once daily - Lispro 8 units prior to each meal - Rx glucometer, test strips, lancets. Monitor BG prior to each meal and keep log. - Patient to establish care with endocrinology as outpatient. Phone # provided. Will need referral from PCP. Plan discussed with: Patient CHICO SUAZO MD Jun 22, 2024 11:52 Condition at Discharge: Stable Final Diagnosis/Problems List New onset diabetes mellitus type 2 insulin depend Discharge Disposition: Home Discharge Instruct/Medications Diet: Consistent carbohydrate, Cardiac 2g Na,low cholest Activity: No Restrictions, As Tolerated Activity comment: With assistance/walker Follow Up/Referral: Primary care physician next week and referral to supervisor furnace process Dr. Adams for diabetes management Medications: Take insulin as prescribed and home medication New Medications: Blood Glucose Monitoring Suppl (Blood Glucose Monitoring W/Device) 1 Kit Kit KIT XX [facility], #1 Insulin Glargine-Yfgn (Semglee) 100 Unit/Ml Inj 20 UNIT SC QAM, #10 INJ Insulin Lispro (Humalog Kwikpen) 100 Unit/Ml Inj 8 UNIT SC TIDWM, #10 INJ Insulin Syringe/Needle U-100 (Bd Insulin Syringe Ultraf) 1 Ml/31 G Mis ML XX QAM, #10 Lancets (Freestyle Lancets) Lancets Mis BOTTLE XX ACHS, #120 Continued Medications: Clonazepam (Clonazepam) 2 Mg Tab PO Hydrochlorothiazide (Hydrochlorothiazide) 12.5 Mg Cap PO Naproxen (Naprosyn Tablet) 500 Mg Tb 1 TAB PO BID Omeprazole (Omeprazole Dr) 20 Mg Cap 1 CAP PO DAILY Sertraline HCl (Sertraline HCl) 50 Mg Tab 1 TAB PO DAILY Discharge Statement: "Patient was advised to return to the ER or call 911 if any headaches, dizziness, shortness of breath, chest pain, abdominal pain, bleeding, fevers, or worsening of medical condition. Patient was counseled about treatment plan, medications, possible side effects, patientverbalized understanding. All questions were answered to the best of my ability. This discharge took greater then 30 minutes in planning, reviewing documentation, counseling the patient, and discussing with other team members." ASSESSMENT ASSESSMENT Assessment New onset diabetes mellitus type 2 insulin depend JASVIR BLUE MD Jun 22, 2024 12:40
[2024-06-22 13:00] VITALS: BP 133/77; PULSE 71; RESP 18; TEMP 98.2; O2SAT 97
--- NOTE | 2024-06-22 15:52 | DVHSR ---
APPROVED REPORT EXAM: Two-dimensional and M-mode echocardiogram with Doppler and color Doppler. Blood Pressure: 111/69 mmHg INDICATION Eval for CAD RISK FACTORS Height: 63, Weight: 216 DIMENSIONS LVDd3.9 (3.8-5.7cm)LA (2D)4.0 (1.9-4.0cm)Aortic Root3.8 (2.0-3.7cm) LVDs2.6 (2.5-4.0cm)LA (MM) (1.9-4.0cm)Aortic Cusp Exc1.6 (1.5-2.0cm) EF (%) 61.0 (55-70%)Rt. Atrium3.7 (1.9-4.0cm)Asc. Aorta cm IVSd1.3 (0.7-1.1cm)RV (D) (1.8-2.4cm) PWd1.4 (0.7-1.1cm) Mitral Valve MitralMitral Stenosis E wave0.76m/sMV Mean GR.mmHg A wave1.00m/sMV Peak GR.21mmHg E/A ratio0.82D MVAcm2 DECEL [id number] 1/2 [id number] IVRTmsDop MVA2.05cm2 Aortic Valve Aortic ValveAortic Stenosis V10.97m/Justin Mean GR.4mmHg V21.34m/Justin Peak GR.7mmHg LVOT Diameter2.2 (1.8-2.4cm)Doppler AVA2.75cm2 AI P 1/2 Mjty910.60ms Pulmonic Valve V20.95m/s Tricuspid Valve TR Velocity1.99m/s [id number] Conclusion Sinus rhythm. Left atrial enlargement. Aortic root enlargement. Mild LV enlargement. Normal valves. EF of 65% with normal right ventricular performance. Trace MR. Trace aortic insufficiency.
== END 2024-06-22 15:05 | disposition home or self-care (01) | DRG 420 ==
LOC: ER 11:42 → EDBD 11:42 → OVERFLOW 16:33 → TELE-WESTW 22:50
PROVIDERS: ADMIT Hospitalist; ATTEND Hospitalist
DX: E11.65 Type 2 diabetes mellitus with hyperglycemia (principal); K80.20 Calculus of gallbladder without cholecystitis without obstruction; E78.5 Hyperlipidemia, unspecified; I10 Essential (primary) hypertension; S70.01XA Contusion of right hip, initial encounter; Y93.01 Activity, walking, marching and hiking; M54.9 Dorsalgia, unspecified; R20.2 Paresthesia of skin; W18.39XA Other fall on same level, initial encounter; Z88.6 Allergy status to analgesic agent; Z88.5 Allergy status to narcotic agent; Z88.8 Allergy status to other drugs, medicaments and biological substances; Z79.899 Other long term (current) drug therapy; Z83.3 Family history of diabetes mellitus; Y92.89 Other specified places as the place of occurrence of the external cause; Y99.8 Other external cause status; Z82.3 Family history of stroke; Z84.1 Family history of disorders of kidney and ureter; Z79.4 Long term (current) use of insulin
CPT/HCPCS: 36415; 70450; 71045; 73502; 73562; 80048; 80061; 81001; 82962; 83036; 84439; 84443; 84484; 85025; 93306; 96374; 96375; 97163; G0378; J1815